=== PATIENT | female | born 1995 | race Caucasian/White ===

== ENCOUNTER 2022-09-01 21:09 | Emergency (ER) | payer OTHER ==
[2022-09-01 21:21] VITALS: RESP 18; BMI 32.3
[2022-09-02 00:10] LABS: EPI CELLS 14 /uL (0-25.1); HYALINE CASTS 1 /uL (0-3.1); URINE APPEARANCE CLEAR; URINE BACTERIA 378 /uL (0-1359); URINE BILIRUBIN NEGATIVE (NEGATIVE); URINE COLOR YELLOW; URINE GLUCOSE (UA) NEGATIVE (NEGATIVE); URINE KETONE NEGATIVE (NEGATIVE); URINE LEUK ESTERASE NEGATIVE (NEGATIVE); URINE NITRITE NEGATIVE (NEGATIVE); URINE PROTEIN NEGATIVE (NEGATIVE); URINE RBC 364 /uL (0-23.9); URINE UROBILINOGEN 0.2 mg/dL (0.2-1.0); URINE WBC 12 /uL (0-25.8)
[2022-09-02 00:39] LABS: BASO % 0.6 % (0-2.0); EOS % 1.9 % (0-4.5); HEMATOCRIT 45.5 % (32.4-45.2); HEMOGLOBIN 15.4 GM/dL (10.7-15.3); LYMPH % 38.4 % (8-40); MCH 33.6 pg (25.7-33.7); MCHC 33.9 g/dl (32.0-36.0); MEAN CELL VOLUME 99.2 fl (80-96); MEAN PLT VOLUME 7.8 fl (7.5-11.1); MONO % 7.5 % (3.8-10.2); NEUT % 51.6 % (42.8-82.8); PLATELET COUNT 352 10^3/uL (134-434); RBC 4.59 M/mm3 (3.60-5.2); RDW 13.2 % (11.6-15.6); WHITE BLOOD COUNT 9.5 K/mm3 (4.0-10.0)
[2022-09-02 00:46] LABS: INR 1.28 (0.83-1.09); PROTHROMBIN TIME (PATIENT) 14.7 SEC (9.7-13.0)
[2022-09-02 00:48] LABS: ACTIVATED PTT 41.3 SECONDS (25.2-36.5)
[2022-09-02 00:52] LABS: CALCIUM 9.6 mg/dL (8.5-10.1)
[2022-09-02 00:53] LABS: ALBUMIN 4.1 g/dl (3.4-5.0); MAGNESIUM 2.2 mg/dL (1.8-2.4)
[2022-09-02 00:56] LABS: CREATININE 0.8 mg/dL (0.55-1.3)
[2022-09-02 03:13] VITALS: BP 115/73; PULSE 79; TEMP 99.9
== END 2022-09-02 04:24 | disposition home or self-care (01) ==
LOC: JER 21:09
DX: N64.4 Mastodynia (principal)
CPT/HCPCS: 36415; 71045-TC-FY; 71275-TC; 80053; 81003; 83735; 84703; 85025; 85379; 85610; 85730; 87086; 87491; 87591; 93005; 93010; 99285-25; C9803-CS; U0003; U0005